=== PATIENT | female | born 1975 | race American Indian/Alaskan Native ===

== ENCOUNTER 2017-07-06 14:13 | Outpatient (CLI) | payer BC ==
--- NOTE | 2017-07-06 15:39 | Mammography Report ---
Bilateral digital screening mammogram with CAD. Comparison studies are from September 2015 and February 2015. Findings: The breast parenchyma is heterogeneously dense. The asymmetric density in the posterior medial right breast is not detectable on today's study. No new masses or architectural distortion is seen. A few rounded monomorphic calcifications are seen in the right breast. Impression: No suspicious findings. BI-RADS code: 2. Recommendation: Annual screening.
== END 2017-07-06 14:14 | disposition home or self-care (01) ==
LOC: SPVWC 14:13
PROVIDERS: ATTEND Obstetrics & Gynecology
DX: Z12.31 Encounter for screening mammogram for malignant neoplasm of breast (principal)
CPT/HCPCS: 77067; G0202

== ENCOUNTER 2019-12-26 15:42 | Outpatient (CLI) | payer BC ==
--- NOTE | 2019-12-27 09:10 | Mammography Report ---
DIGITAL SCREENING MAMMOGRAM WITH CAD, 12/26/2019 INDICATION: Routine screening mammography. TECHNIQUE: Digital bilateral 2D mammography was obtained in the craniocaudal and mediolateral obliq ue projections. This examination was interpreted with the benefit of Computer-Aided Detection analysi s. COMPARISON: 02/28/2015. FINDINGS: Breast Density: There are scattered areas of fibroglandular density. There is no evidence of dominant mass, suspicious calcifications or architectural distortion in eithe r breast. IMPRESSION: Follow up recommendation: Routine yearly BI-RADS Category 1: Negative. A "normal" or negative report should not discourage follow up or biopsy of a clinically significant f inding. A written summary of these findings will be mailed to the patient. The patient will be entered into a mammography reporting system which will generate a reminder letter for the patient's next appointmen t at the appropriate interval. The [employer] recommends yearly mammograms starting at age 40 and continuing as l yogesh as a woman is in good health. Breast MRI is recommended for women with an approximate 20-25% or greater lifetime risk of breast cancer, including women with a strong family history of breast or ova maria m cancer or who have been treated for Hodgkin's disease. Signer Name: Lucio Aparicio MD Signed: 12/27/2019 9:06 AM Workstation Name: [email or web address]
== END 2019-12-26 15:43 | disposition home or self-care (01) ==
LOC: SPVWC 15:42
PROVIDERS: ATTEND Obstetrics & Gynecology
DX: Z12.31 Encounter for screening mammogram for malignant neoplasm of breast (principal); N64.89 Other specified disorders of breast
CPT/HCPCS: 77067

== ENCOUNTER 2021-03-31 15:41 | Outpatient (CLI) | payer BC ==
--- NOTE | 2021-04-01 13:06 | Mammography Report ---
DIGITAL SCREENING MAMMOGRAM WITH CAD, 04/01/2021 CLINICAL INFORMATION / INDICATION: Routine screening mammography. SCREENING MAMMO Z12.31 TECHNIQUE: Digital bilateral 2D mammography was obtained in the craniocaudal and mediolateral obliqu e projections. This examination was interpreted with the benefit of Computer-Aided Detection analysis . COMPARISON: 02/28/2015 through 12/26/2019. FINDINGS: Breast Density: There are scattered areas of fibroglandular density. No dominant mass, suspicious calcifications, or architectural distortion in either breast. Benign-appearing calcifications in the right breast are again identified. There are a couple of small benign intramammary lymph nodes in the right axillary tail, unchanged. IMPRESSION: No mammographic evidence of malignancy. Follow up recommendation: Routine yearly BI-RADS Category 2: Benign. A "normal" or negative report should not discourage follow up or biopsy of a clinically significant f inding. A written summary of these findings will be mailed to the patient. The patient will be entered into a mammography reporting system which will generate a reminder letter for the patient's next appointmen t at the appropriate interval. The [employer] recommends yearly mammograms starting at age 40 and continuing as l yogesh as a woman is in good health. Breast MRI is recommended for women with an approximate 20-25% or greater lifetime risk of breast cancer, including women with a strong family history of breast or ova maria m cancer or who have been treated for Hodgkin's disease. Signer Name: José Miguel Barnes MD Signed: 04/01/2021 1:02 PM Workstation Name: [email or web address]
== END 2021-03-31 15:42 | disposition home or self-care (01) ==
LOC: SPVWC 15:41
PROVIDERS: ATTEND Internal Medicine
DX: Z12.31 Encounter for screening mammogram for malignant neoplasm of breast (principal)
CPT/HCPCS: 77067